=== PATIENT | female | born 1975 | race Caucasian/White ===

== ENCOUNTER 2024-10-09 13:44 | Emergency (ER) | payer MEDICARE, MEDICAID ==
[~2024-10-09] VITALS: Ht 165.1 cm; Wt 124.7 kg
[2024-10-09 16:28] LABS: Source, Urine Voided
[2024-10-09 16:40] LABS: Bilirubin, Urine Neg (Neg); Color, Urine Yellow (P-Yellow); Glucose Qualitative, Urine Neg (Neg); Ketones, Urine 1+ (Neg); Leukocyte Esterase, Urine Neg (Neg); Protein, Urine 1+ (Neg); Specific Gravity, Urine 1.015 (1.003-1.022); Urobilinogen, Urine NORM (Normal)
[2024-10-09 17:36] LABS: Influenza A/2009-H1 Not Detected (NOT DETECT); SARS-Cov-2 (COVID-19), BioFire Not Detected (NOT DETECT)
== END 2024-10-09 19:54 | disposition home or self-care (01) ==
LOC: ER 13:44
PROVIDERS: Emergency Medicine
DX: B34.9 Viral infection, unspecified (principal)
CPT/HCPCS: 0202U; 99283